=== PATIENT | female | born 1995 | race Caucasian/White ===

== ENCOUNTER 2021-08-28 13:22 | Emergency (ER) | payer OTHER, SELFPAY ==
[2021-08-28 13:37] VITALS: BP 110/75; PULSE 77; RESP 18; TEMP 37.4; O2SAT 96
[2021-08-28 13:40] VITALS: BP 110/75; PULSE 77; RESP 18; TEMP 37.4; O2SAT 96
--- NOTE | 2021-08-28 13:57 | ED.GENADULT ---
HPI - General Adult General Chief complaint: Urogenital-Female Stated complaint: Frequent urination, and back pain Source: patient Mode of arrival: ambulatory Limitations: no limitations History of Present Illness HPI narrative: Patient presents for evaluation of urinary symptoms. She reports some suprapubic discomfort for the last 3 days. This morning she woke from sleep with some pain in her left flank. Pain waxed and waned for approximately 3 hours and has now dissipated. She reports pain in the suprapubic region and previously experienced pain in the left flank as a cramping . She reports urinary frequency, hesitancy, incomplete emptying, dysuria. She denies any vaginal bleeding or discharge. Last menstrual period last . No fever, chills, vomiting however she had some nausea. She has had UTI's in past and this feels similar. She has also had kidney stones and has had a ureteral stent placed in past. Related Data Allergies Allergy/AdvReac Type Severity Reaction Status Date / Time latex Allergy Mild rash Verified 05/18/21 10:39 apple Allergy Swelling Verified 08/28/21 13:40 of Lip/Tongue/Throat banana Allergy Swelling Verified 08/28/21 13:40 of Lip/Tongue/Throat kiwi Allergy Swelling Verified 08/28/21 13:40 of Lip/Tongue/Throat Mushroom Allergy Severe swelling Uncoded 05/18/21 10:39 Review of Systems Review of Systems: CONSTITUTIONAL: Denies fever, chills, or sweats. EYES: Denies visual changes, redness, or discharge. ENT: Denies rhinorrhea, congestion, sore throat, or otalgia. CARDIOVASCULAR: Denies chest pain, palpitations, or edema. RESPIRATORY: Denies cough or dyspnea. GASTROINTESTINAL: Reports suprapubic pain and nausea. Denies vomiting GENITOURINARY: Reports urinary frequency, urgency, hesitancy, dysuria and incomplete emptying SKIN: Denies rash or itching. MUSCULOSKELETAL:Reports left flank earlier pain, now resolved. Denies joint pain, or myalgia. NEUROLOGIC: Denies headache, numbness, dizziness, or weakness. PSYCHIATRIC: Denies anxiety or depression. Course Course Emergency Course: This is a 25-year-old female who present with complaints of urinary symptoms. She has a history of urinary tract infection and kidney stones. Her urine is consistent with either of these as possibilities. I believe she is actively passing stone. I did offer to send her to ER for further evaluation but reviewed that it may not be necessary as I suspect it has already descended into bladder. We will treat her with abx for UTI. She will go to ER for further evaluation and treatment if her symptoms return/worsen. Otherwise she will follow up outpatient. Pt in agreement with plan of care. Level of Care: Express Care Visit Vital Signs Vital signs: Vital Signs Temperature 37.4 C 08/28/21 13:37 Pulse Rate 77 08/28/21 13:37 Respiratory Rate 18 08/28/21 13:37 Blood Pressure 110/75 08/28/21 13:37 Pulse Oximetry 96 08/28/21 13:37 Oxygen Delivery Room Air 08/28/21 13:37 Temperature 37.4 C 08/28/21 13:40 Pulse Rate 77 08/28/21 13:40 Respiratory Rate 18 08/28/21 13:40 Blood Pressure 110/75 08/28/21 13:40 Pulse Oximetry 96 08/28/21 13:40 Oxygen Delivery Room Air 08/28/21 13:40 Medical Decision Making Vital Signs Vital Signs: Vital Signs Temperature 37.4 C 08/28/21 13:37 Pulse Rate 77 08/28/21 13:37 Respiratory Rate 18 08/28/21 13:37 Blood Pressure 110/75 08/28/21 13:37 Pulse Oximetry 96 08/28/21 13:37 Oxygen Delivery Room Air 08/28/21 13:37 Temperature 37.4 C 08/28/21 13:40 Pulse Rate 77 08/28/21 13:40 Respiratory Rate 18 08/28/21 13:40 Blood Pressure 110/75 08/28/21 13:40 Pulse Oximetry 96 08/28/21 13:40 Oxygen Delivery Room Air 08/28/21 13:40 Lab Data Labs: Urine Glucose Negative Reference Range: Negative Urine Bilirubin
== END 2021-08-28 14:00 | disposition home or self-care (01) ==
PROVIDERS: Emergency Provider Nurse Practitioner
DX: N23 Unspecified renal colic (principal); N39.0 Urinary tract infection, site not specified
CPT/HCPCS: 81003; 87086; 87088; 99213; G0463

== ENCOUNTER 2022-08-01 12:08 | Emergency (ER) | payer OTHER, SELFPAY ==
[2022-08-01 12:14] VITALS: BP 130/80; PULSE 87; RESP 20; TEMP 37.2; O2SAT 100
--- NOTE | 2022-08-01 12:23 | ED.LOWEXIN ---
HPI - Extremity Injury (Lower) General Chief Complaint: Extremity Injury, Lower Stated Complaint: Right Leg Pain History of Present Illness HPI Narrative: PATIENT PRESENTS WITH A MUSCLE STRAIN TO RIGHT UPPER THIGH. NO INJURY NO SWELLING NO DEFORMITY. PATIENT THINKS SHE PULLED A MUSCLE 4 DAYS AGO WHILE CHASING AFTER HER 6 YEAR OLD. NO CALF PAIN. Related Data Allergies Allergy/AdvReac Type Severity Reaction Status Date / Time latex Allergy Mild rash Verified 05/18/21 10:39 amoxicillin Allergy Hives Verified 08/01/22 12:20 apple Allergy Swelling Verified 08/28/21 13:40 of Lip/Tongue/Throat banana Allergy Swelling Verified 08/28/21 13:40 of Lip/Tongue/Throat kiwi Allergy Swelling Verified 08/28/21 13:40 of Lip/Tongue/Throat Mushroom Allergy Severe swelling Uncoded 05/18/21 10:39 Review of Systems Review of Systems: CONSTITUTIONAL: DENIES FEVER, CHILLS, OR SWEATS. EYES: DENIES VISUAL CHANGES, REDNESS, OR DISCHARGE. ENT: DENIES RHINORRHEA, CONGESTION, SORE THROAT, OR OTALGIA. CARDIOVASCULAR: DENIES CHEST PAIN, PALPITATIONS, OR EDEMA. RESPIRATORY: DENIES COUGH OR DYSPNEA. GASTROINTESTINAL: DENIES ABDOMINAL PAIN, NAUSEA, VOMITING, OR DIARRHEA. GENITOURINARY: DENIES DYSURIA OR HEMATURIA. SKIN: DENIES RASH OR ITCHING. MUSCULOSKELETAL: DENIES BACK PAIN, JOINT PAIN, OR MYALGIA. NEUROLOGIC: DENIES HEADACHE, NUMBNESS, OR WEAKNESS. PSYCHIATRIC: DENIES ANXIETY OR DEPRESSION. PMFSH Comments AT TIME OF SIGNATURE, AGREE WITH NURSING PAST MEDICAL, SURGICAL, SOCIAL AND FAMILY HISTORY. THERE IS NO RELEVANT FAMILY HISTORY PERTINENT TO THE PRESENTING COMPLAINT Exam Narrative: GENERAL: WELL-APPEARING, WELL-NOURISHED, AND IN NO ACUTE DISTRESS. HEAD: NORMOCEPHALIC, ATRAUMATIC. EYES: PERRLA AND EOMI. ENT: NARES CLEAR, NO RHINORRHEA OR EPISTAXIS. MUCOUS MEMBRANES MOIST. NECK: SUPPLE. CHEST: CLEAR TO AUSCULTATION. NO RESPIRATORY DISTRESS. HEART: REGULAR RATE AND RHYTHM. NO MURMUR HEARD. NORMAL PERIPHERAL PULSES. ABDOMEN: SOFT, NONTENDER, NONDISTENDED, NORMAL ACTIVE BOWEL SOUNDS. EXTREMITIES: NORMAL RANGE OF MOTION. NO EDEMA. Lower extremity: RIGHT HIP EXAM - SKIN INTACT. NO BRUISING, REDNESS OR SWELLING. NO INGUINAL MASSES OR LYMPHADENOPATHY. GENERALIZED FEMUR AND HIP TENDERNESS. PATIENT HOLDING HIP IN EXTERNAL ROTATION WITH SLIGHT FLEXION OF KNEE. NO BUTTOCK OR SI JOINT TENDERNESS. ROM LIMITED DUE TO PAIN. NORMAL FEMORAL PULSES. BACK EXAM - NO VERTEBRAL POINT SPECIFIC TENDERNESS OR STEP OFFS. NORMAL ROM OF BACK. NORMAL FLEXION AND EXTENSION OF BACK. NO CVA TENDERNESS. LEG EXAM - NO CALF OR ANKLE SWELLING, DISCOLORATION. NORMAL FOOT SENSATION AND CAP REFILL. NORMAL DP PULSE. . SKIN: WARM, DRY, NO RASH. NEURO: NO FOCAL DEFICITS. ALERT AND ORIENTED X3. MARIA T COMA SCALE EYE OPENING: SPONTANEOUS 4 MARIA T COMA SCALE MOTOR: OBEYS COMMANDS 6 MARIA T COMA SCALE VERBAL: ORIENTED 5 MARIA T COMA SCALE TOTAL 15 Course Course Level of Care: Express Care Visit Vital Signs Vital signs: Vital Signs Temperature 37.2 C 08/01/22 12:14 Pulse Rate 87 08/01/22 12:14 Respiratory Rate 20 08/01/22 12:14 Blood Pressure 130/80 08/01/22 12:14 Pulse Oximetry 100 08/01/22 12:14 Oxygen Delivery Room Air 08/01/22 12:14 Temperature 37.2 C 08/01/22 12:14 Pulse Rate 87 08/01/22 12:14 Respiratory Rate 20 08/01/22 12:14 Blood Pressure 130/80 08/01/22 12:14 Pulse Oximetry 100 08/01/22 12:14 Oxygen Delivery Room Air 08/01/22 12:14 DISCUSSED PATIENT STRETCHING EXERCISES AND NEED TO FOLLOW UP WITH PCP IN 1-2 DAYS FOR REEVALUATION OF MUSCLE STRAIN MDM - Extremity Injury (Lower) Differential Diagnosis Differential diagnosis: Likely ankle sprain and strain, acute internal derangement of knee and other (MUSCLE STRAIN) Discharge Plan Discharge Clinical Impression: Muscle strain, Muscle strain of gluteal region Patient Disposition: Home, Self-Care Condition: Stable Instru
== END 2022-08-01 12:29 | disposition home or self-care (01) ==
PROVIDERS: Emergency Provider Nurse Practitioner Family
DX: S76.011A Strain of muscle, fascia and tendon of right hip, initial encounter (principal); X58.XXXA Exposure to other specified factors, initial encounter; Y93.02 Activity, running
CPT/HCPCS: 99213; G0463

== ENCOUNTER 2023-04-20 10:13 | Emergency (ER) | payer OTHER, SELFPAY ==
[2023-04-20 10:18] VITALS: BP 122/87; PULSE 80; RESP 20; TEMP 37.5; O2SAT 100
--- NOTE | 2023-04-20 10:23 | ED.DENTAL ---
HPI - Dental/Oral General Chief complaint: Dental/Oral Stated complaint: tooth abcess Source: patient, RN notes reviewed and old records reviewed Mode of arrival: ambulatory Limitations: no limitations History of Present Illness HPI Narrative: 27-year-old female presents to [facility] with complaints of left upper dental pain with gum abscess this started 1 week ago. Patient states positive test last week and symptoms improved but then returned this week. Patient has been taking [id number] medications and doing saltwater gargles. Patient for the dental appointment but can not get in until May. Related Data Allergies Allergy/AdvReac Type Severity Reaction Status Date / Time latex Allergy Mild rash Verified 05/18/21 10:39 amoxicillin Allergy Hives Verified 08/01/22 12:20 apple Allergy Swelling Verified 08/28/21 13:40 of Lip/Tongue/Throat banana Allergy Swelling Verified 08/28/21 13:40 of Lip/Tongue/Throat kiwi Allergy Swelling Verified 08/28/21 13:40 of Lip/Tongue/Throat Mushroom Allergy Severe swelling Uncoded 05/18/21 10:39 Review of Systems Constitutional: Constitutional: Reports no additional constitutional complaints, Denies body ache(s), Denies chills, Denies fatigue, Denies fever(s) and Denies headache(s) Eyes: Eyes: Reports no additional eye complaints and Denies blurry vision ENT: Reports system reviewed and no additional complaints, except as documented, Reports dental pain, Denies vertigo, Denies dizziness, Denies ear discharge, Denies otalgia, Denies facial pain, Denies headache(s), Reports mouth pain, Denies nasal congestion, Denies nasal discharge, Denies sinus pain, Denies sinus pressure and Denies sore throat Cardiovascular: Cardiovascular: Reports no additional cardiovascular complaints, Denies chest pain, Denies chest pain at rest, Denies rapid heart rate and Denies dyspnea Respiratory: Respiratory: Reports no additional respiratory complaints, Denies chest congestion, Denies cough, Denies pain on inspiration, Denies pain with cough and Denies dyspnea Gastrointestinal: Gastrointestinal: Denies abdominal pain, Denies diarrhea, Denies nausea and Denies vomiting Integumentary/Breasts: Skin/Breast: Denies rash Neurologic: Reports system reviewed and no additional complaints, except as documented, Denies vertigo, Denies dizziness and Denies headache(s) Endocrine: Endocrine: Denies fatigue PMFSH Comments At the time of my signature, I reviewed and agree with the nursing past medical, surgical, social, and family history. There is no relevant family history pertinent to the patient complaint. Exam Const: General: cooperative, healthy appearing, no acute distress and well nourished Nutritional Appearance: well nourished Orientation/consciousness: patient oriented x3 Limitations: no limitations HENMT: Head: normal to inspection and normocephalic Ears: external ears normal Face/Nose/Sinus: normal facial exam Face and sinus: normal facial exam Mouth: Yes Normal oral and palatal mucosa present, Yes oropharynx normal and Yes moist mucous membranes Teeth and gingiva: gingiva abnormal edematous, with purulent discharge and tender Throat: tonsils normal, uvula midline and no uvular edema Eyes: General: appearance normal, both eyes and all related structures Sclera: sclerae normal Pupils: Equal, round and reactive pupils present Resp: Effort & Inspection: normal respiratory effort, able to speak in complete sentences, no audible wheezes, no cough, no respiratory distress and no retractions Skin: General skin exam: normal color and no rashes or lesions noted Neuro: General: patient oriented x3 Cranial nerves: Yes Equal, round and reactive pupils present Psych: Appearance: grossly normal Mental Status: mental status grossly normal Speech and movement: Normal speech and movement present Affect: normal affect Course Course Emergency Course: Patient is aware of diagno
== END 2023-04-20 10:37 | disposition home or self-care (01) ==
PROVIDERS: Emergency Provider Registered Nurse
DX: K04.7 Periapical abscess without sinus (principal)
CPT/HCPCS: 99213; G0463

== ENCOUNTER 2024-11-20 08:19 | Emergency (ER) | payer SELFPAY ==
[2024-11-20 08:28] VITALS: BP 140/86; PULSE 85; RESP 19; TEMP 36.7; O2SAT 100
--- OUTSIDE RECORDS SUMMARY | 2024-11-20 08:33 | XMS_ITS | Clinical Summary ---
Author Organization [facility] Address [address] [place] [address] Care Team Providers Care Evidence Custodian Name Role Phone Cecile Anaya MD Primary Care Provider + [phone] Source Comments [facility] Affiliates and Associated Physician Practices is amultiple site organization consisting of ambulatory clinics and hospital sitesin [place], [place], [place] and [place]. This disclosure is being madepursuant to the Care Everywhere program and may not contain all information available regarding this patient. Last updated 17.[facility] [place] Allergies Active Allergy Reactions Criticality Noted Date Comments Latex Swelling High 06/18/2015 Mushroom Extract Complex Angioedema High 06/18/2015 Has epi pen Has epi pen Medications * Be aware that medications may not be up to date on this document. Alwaysverify current medications with the patient. 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 Social History Tobacco Use Types Packs/Day Years Used Date Smoking Tobacco: Never Comments Unknown Sex and Gender Information Value Date Recorded Sex Assigned at Not on file Legal Sex Female 1:05 PM CDT Gender Identity Not on file Sexual Orientation Not on file Last Filed Vital Signs Vital Sign Reading Time Taken Comments Blood Pressure 116/62 04/28/2016 2:35 PM CDT Pulse 69 04/28/2016 2:35 PM CDT Temperature 36.9 C (98.4 F) 04/28/2016 2:35 PM CDT Respiratory Rate - - Oxygen Saturation - - Inhaled Oxygen Concentration - - Weight 61.2 kg (135 lb) 04/28/2016 2:35 PM CDT Height 160 cm (5' 3) 04/28/2016 2:35 PM CDT Body Mass Index 23.91 04/28/2016 2:35 PM CDT Plan of Treatment Health Maintenance Due Date Last Done Comments HIV SCREENING 11/14/2011 HEPATITIS C SCREENING 11/09/2014 DTAP/TDAP/TD VACCINES (1 - Tdap) 11/14/2015 HEPATITIS B VACCINE (1 of 3 - 19+ 3-dose series) 11/14/2015 HPV VACCINE (1 - 3-dose SCDM series) 11/14/2023 DEPRESSION SCREENING 02/07/2024 COVID-19 VACCINE (1 - 2023-2 5 season) 2024 INFLUENZA VACCINE (#1) 2024 ZOSTER VACCINE (1 of 2) 2046 HIB VACCINE Aged Out No longer eligi ble based on patient's age to complete this topic MENINGOCOCCAL (Group B) VACC INE SHARED DECISION-MAKING Aged Out No longer eligibl e based on patient's age to complete this topic MENINGOCOCCAL GROUPS A/C/Y/W VACCINE Aged Out No longer eligible b ased on patient's age to complete this topic PNEUMOCOCCAL VACCINE Aged Out No long er eligible based on patient's age to complete this topic Insurance [employer] Care Teams Evidence Custodian Relationship Specialty Start Date End Date Cecile Anaya MD PCP - General Pediatrics 05/21/15
--- OUTSIDE RECORDS SUMMARY | 2024-11-20 08:33 | XMS_ITS | Clinical Summary ---
Author Organization [facility] Address [address] [place] [address] Phone Care Team Providers Care Edge Banding Off Bearer Name Role Phone Provider, None Primary Care Provider Unavailabl e Allergies Active Allergy Reactions Criticality Noted Date Comments Amoxicillin Swelling 08/23/2022 Medications methylPREDNISol one (MEDROL DOSPACK) 4 MG Tablet Therapy Pack See product package insert for dosing schedule 21 Tablet 3 Active traMADol (ULTRAM) 50 MG TabletIndicatio ns:Lumbar radiculopathy, right Take 1-2 Tablets by mouth every 6 hours as needed for Moderate or more severe pain. 20 Tablet 3 Active HYDROcodone-celestina taminophen (NORCO) 5-325 MG TabletIndicatio ns:Acute right-sided low back pain with right-sided sciatica Take 1 Tablet by mouth every 4 hours as needed for Severe pain. 20 Tablet 3 Active naloxone HCl (Narcan) 4 MG/0.1ML Liquid 1 Pandora by Nasal route as needed for Opioid Reversal (opioid overdose). administer for symptoms of overdose (severe sleepiness, breathing problems, not responsive). Call 911. May use additional dose to repeat 1 spray intranasally in 2-3 minutes if needed. 2 Each 3 Active Social History Tobacco Use Types Packs/Day Years Used Date Smoking Tobacco: Never Comments Unknown Sex and Gender Information Value Date Recorded Sex Assigned at Not on file Legal Sex Female 8:36 PM CDT Gender Identity Not on file Sexual Orientation Not on file Last Filed Vital Signs Vital Sign Reading Time Taken Comments Blood Pressure 116/72 08/23/2022 1:27 AM CDT Pulse 80 08/23/2022 1:27 AM CDT Temperature 37 C (98.6 F) 08/23/2022 12:01 AM CDT Respiratory Rate 20 08/23/2022 1:27 AM CDT Oxygen Saturation 99% 08/23/2022 1:27 AM CDT Inhaled Oxygen Concentration - - Weight 72.6 kg (160 lb) 08/23/2022 12:01 AM CDT Height 160 cm (5' 3) 08/23/2022 12:01 AM CDT Body Mass Index 28.34 08/23/2022 12:01 AM CDT Plan of Treatment Health Maintenance Due Date Last Done Comments Hepatitis C Virus (HCV) Screening 1996 TdaP Immunization 1996 Human Papillomavirus (HPV) Immunization (1 - 3-dose SCDM series) 11/14/2023 Influenza Immunization (#1) 2024 SARS-COV-2 Immunization ( - 2023- season) 2024 Respiratory Syncytial Virus (RSV) Immunization (Adult) (1 - 1-dose 75+ series) 11/14/2071 Hepatitis B Immunization Completed 998, 01/01/1997, 1996 DTaP/Tdap/Td Immunization Discontinued 2002, 06/03/1997, 03/05/1997, Additional history exists Meningococcal Immunization (ACWY) Completed 11/05/2014 Pneumococcal Immunization Combined Aged Out No longer eligible based on patient's age to complete this topic Rotavirus Immunization Aged Out No lo nger eligible based on patient's age to complete this topic Insurance Care Teams Edge Banding Off Bearer Relationship Specialty Start Date End Date Provider, None [place] PCP - General 08/03/22
--- OUTSIDE RECORDS SUMMARY | 2024-11-20 08:33 | XMS_ITS | Clinical Summary ---
Author Organization [facility] Address [address] [place] [address] Care Team Providers Care Mine Expert Name Role Phone Katie Fung MD Primary Care Provider [phone] Allergies Active Allergy Reactions Criticality Noted Date Comments Latex Mushroom Social History Tobacco Use Types Packs/Day Years Used Date Smoking Tobacco: Never Tobacco Cessation:Counseling Given: Not Answered Alcohol Use Standard Drinks/Week Comments Not Currently 0 (1 standard drink = 0.6 oz pur e alcohol) Personal Safety Answer Date Recorded Getting School Help Needed Not on file 03/28 Comments Unknown Sex and Gender Information Value Date Recorded Sex Assigned at Not on file Legal Sex Female 8:01 AM PAINT ROLLER COVER MACHINE SETTER Gender Identity Not on file Sexual Orientation Not on file Obstetrics History Para Term AB IAB SAB Ectopic Multiple Livin g Live Births 1 Date Outcome GA Total Labor Labor/2nd/3rd Weight Sex Type Anes PTL Lucy A1 A5 Name Clin Last Filed Vital Signs Vital Sign Reading Time Taken Comments Blood Pressure 127/88 02/14/2022 11:25 PM PAINT ROLLER COVER MACHINE SETTER Pulse 92 02/14/2022 11:25 PM PAINT ROLLER COVER MACHINE SETTER Temperature 37.5 C (99.5 F) 02/14/2022 11:25 PM PAINT ROLLER COVER MACHINE SETTER Respiratory Rate 18 02/14/2022 11:25 PM PAINT ROLLER COVER MACHINE SETTER Oxygen Saturation 100% 02/14/2022 11:25 PM PAINT ROLLER COVER MACHINE SETTER Inhaled Oxygen Concentration - - Weight 65.8 kg (145 lb) 02/14/2022 5:11 PM PAINT ROLLER COVER MACHINE SETTER Height 162.6 cm (5' 4) 02/14/2022 5:11 PM PAINT ROLLER COVER MACHINE SETTER Body Mass Index 24.89 02/14/2022 5:11 PM PAINT ROLLER COVER MACHINE SETTER Plan of Treatment Health Maintenance Due Date Last Done Comments Cervical Cancer Screening 1996 Depression Screening 1996 Hepatitis C Screening 1996 DTaP/Tdap/Td Vaccine (1 - Tdap) 11/14/2007 Varicella Vaccines (1 of 2 - 13+ 2-dose series) 2009 Hepatitis B Screening 2014 Regular Well Visit/Exam 18-64 2014 HPV Vaccines (1 - 3-dose SCD M series) 11/14/2023 Influenza Vaccine (#1) 2024 Pneumococcal vaccine <65 Aged Out No longer eligible based on patient's age to complete this topic Insurance [facility] Care Teams Mine Expert Relationship Specialty Start Date End Date Katie Fung MD PCP - General Family Medicine 02/14/22
[2024-11-20 08:37] LABS: BEDSIDEPREGUCG Negative (Negative)
[2024-11-20] MEDS: HYDROcodone/acetaminophen (*CRX) 5-325 MG TABLET 1 TAB PO (09:58)
--- NOTE | 2024-11-20 10:00 | ED_ITS ---
HPI - Dental/Oral General Chief complaint: Dental/Oral Stated complaint: DENTAL ISSUES Time Seen by Provider: 11/20/24 09:16 Source: patient and RN notes reviewed Mode of arrival: ambulatory Limitations: no limitations History of Present Illness HPI Narrative: 29-year-old female presents Express Care complaining of dental pain since this morning. Patient reports head pain to left upper mouth. Patient denies any difficulty swallowing, breathing, fevers come by [place] chills, nausea vomiting, or any other symptoms. Patient reports a history of dental problems, she says she has not yet seen a dentist for it. Patient took ibuprofen this morning with minimal relief. Related Data Allergies Allergy/AdvReac Type Severity Reaction Status Date / Time latex Allergy Mild rash Verified 11/20/24 08:27 amoxicillin Allergy Hives Verified 11/20/24 08:27 apple Allergy Swelling Verified 11/20/24 08:27 of Lip/Tongue/Throat banana Allergy Swelling Verified 11/20/24 08:27 of Lip/Tongue/Throat kiwi Allergy Swelling Verified 11/20/24 08:27 of Lip/Tongue/Throat Mushroom Allergy Severe swelling Uncoded 05/18/21 10:39 Review of Systems Review of Systems: CONSTITUTIONAL: Denies fever, chills, or sweats. EYES: Denies visual changes, redness, or discharge. ENT: Denies rhinorrhea, congestion, sore throat, dysphagia, difficulty clearing secretions, or otalgia. MOUTH: Positive for dental pain. CARDIOVASCULAR: Denies chest pain, palpitations, or edema. RESPIRATORY: Denies cough or dyspnea. GASTROINTESTINAL: Denies abdominal pain, nausea, vomiting, or diarrhea. GENITOURINARY: Denies dysuria or hematuria. SKIN: Denies rash or itching. MUSCULOSKELETAL: Denies back pain, joint pain, or myalgia. NEUROLOGIC: Denies headache, numbness, or weakness. PSYCHIATRIC: Denies anxiety or depression. All other systems reviewed are negative, except as documented in HPI. PMFSH Comments At the time of my signature, I reviewed and agree with the nursing past medical, surgical, social, and family history. There is no relevant family history pertinent to the patient complaint. Exam Narrative: GENERAL: This is a well-nourished, well-developed adult, in no apparent distress. They are non ill-appearing, nontoxic appearing. HEAD: normocephalic, atraumatic. EYES: Sclera clear/white. Conjunctiva normal. Vision is grossly intact. Extraocular movements intact EARS: External ears normal, Hearing grossly intact. NOSE: External nose normal THROAT: Mucous membranes moist, posterior pharynx clear, without erythema or swelling. Uvula midline. OROPHARYNX: Abscess present above left upper lateral incisor. Fracture to the 1st bicuspid tooth to left upper mouth. Gingivitis present. Tongue midline. No pain or swelling of the tongue. Dental caries present. No trismus. NECK: Neck supple, non-tender without lymphadenopathy, masses or thyromegaly. CARDIOVASCULAR: Regular rate and rhythm RESPIRATORY: Respiratory rate normal, respiratory effort nonlabored, no respiratory distress SKIN: warm, Dry, intact with no suspicious lesions or rash, good texture and turgor. NEURO: awake, alert, and oriented to person, place and time. There were no obvious focal neurologic abnormalities. EXTREMITIES: No joint tenderness, effusion, or edema noted. Course Course Emergency Course: Portions of this record may have been created with voice recognition software Vital Signs Vital signs: Vital Signs Temperature 98.0 F 11/20/24 08:28 Pulse Rate 85 11/20/24 08:28 Respiratory Rate 19 11/20/24 08:28 Blood Pressure 140/86 11/20/24 08:28 Pulse Oximetry 100 11/20/24 08:28 Oxygen Delivery Room Air 11/20/24 08:28 Temperature 98.0 F 11/20/24 08:28 Pulse Rate 85 11/20/24 08:28 Respiratory Rate 19 11/20/24 08:28 Blood Pressure 140/86 11/20/24 08:28 Pulse Oximetry 100 11/20/24 08:28 Oxygen Delivery Room Air 11/20/24 08:28 Reviewed MDM - Dental/Oral MDM Narrative Medical decision making narrative: Patient has dental abscess. Will treat with clindamycin. Patient given a dose of [facility] for pain. Will send a prescription of ibuprofen. Discussed physical exam findings. Advised supportive measures and signs/symptoms to go to the ER. Pt is appropriate for outpt treatment and f/u. Differential Diagnosis Differential diagnosis: Likely gingival abscess, dental caries, toothache, dental abscess and fracture of tooth Lab Data Labs: Lab Results 11/20/24 Range/Units 08:35 POC Urine HCG, Qual Negative (Negative) Critical Care Time Critical Care Time Critical Care Time: No Discharge Plan Discharge Clinical Impression: Dental abscess Patient Disposition: Home Condition: Stable Instructions: Antibiotic Form, Dental Abscess (ED) Additional Instructions: Take the antibiotics as directed. Take ibuprofen as directed. You may alternate with Tylenol. Follow instructions on the bottle. [place] your teeth and floss at least 2 times a day. You may use mouthwash after each brushing as well. Follow-up with dentist next week. He developed worsening swelling, fevers, difficulty swallowing or breathing, difficulty opening her jaw, swelling under the tongue, or any other concerns please go to the ER immediately. Patient Language: Micronesian Prescriptions: New clindamycin HCl [Cleocin HCl] 150 mg capsule 450 mg PO TID 7 Days Qty: 63 0RF ibuprofen 800 mg tablet 800 mg PO Q6H PRN (Reason: pain) Qty: 30 0RF No Action clindamycin HCl 300 mg capsule 300 mg PO Q6H 10 Days Qty: 40 0RF Follow-up/Referrals: PHYSICIAN,[facility] [Primary Care Provider, Internal Medicine] Stand Alone Forms: Work/School Release IP Time of Disposition: 09:57
[2024-11-20 10:02] VITALS: BP 132/90; PULSE 90; RESP 16; O2SAT 99
--- OUTSIDE RECORDS SUMMARY | 2024-11-20 11:04 | XMS_ITS | Clinical Summary ---
Author Organization [facility] Address [address] [place] [address] Phone Care Team Providers Care Timber Inspector Name Role Phone Provider, None Primary Care [...] naloxone HCl (Narcan) 4 MG/0.1ML Liquid 1 [place] by Nasal route as needed for Opioid [...] to complete this topic Insurance Care Teams Timber Inspector Relationship Specialty Start Date End Date Provider, None [place] PCP - General 08/03/22
--- OUTSIDE RECORDS SUMMARY | 2024-11-20 11:04 | XMS_ITS | Clinical Summary ---
Author Organization [facility] Address [address] [place] [address] Care Team Providers Care Program Facilitator Name Role Phone Cecile Anaya MD Primary Care Provider + [phone] Source Comments [facility],non-[facility] Affiliates and Associated Physician Practices is amultiple site organization consisting of ambulatory clinics and hospital sitesin [place], [place], [place] and [place]. This disclosure is being madepursuant to the Care Everywhere program and may not contain all information available regarding this patient. Last updated 17.[facility] [employer] Allergies Active Allergy Reactions Criticality Noted Date Comments Latex Swelling High 06/18/2015 Mushroom Extract Complex Angioedema High 06/18/2015 Has epi pen Has epi pen Medications * Be aware that medications may not be up to date on this document. Alwaysverify current medications with the patient. neomycin-polymy heavenly-hc (CORTISPORIN) [id number] otic solution Instill 4 Drops into left [...] complete this topic Insurance [employer] Care Teams Program Facilitator Relationship Specialty Start Date End Date Cecile Anaya MD PCP - General Pediatrics 05/21/15
--- OUTSIDE RECORDS SUMMARY | 2024-11-20 11:04 | XMS_ITS | Clinical Summary ---
Author Organization [facility] Address [address] [place] [address] Care Team Providers Care Airframe And Powerplant Technician Name Role Phone Katie Fung MD Primary Care Provider [phone] Allergies Active Allergy Reactions Criticality Noted Date [...] on file Legal Sex Female 8:01 AM SENIOR DIRECTOR Gender Identity Not on file Sexual Orientation Not on file Obstetrics History Para Term AB IAB SAB Ectopic Multiple Livin g Live Births 1 Date Outcome GA Total Labor Labor/2nd/3rd Weight Sex Type Anes PTL Lucy A1 A5 Name Clin Last Filed Vital Signs Vital Sign Reading Time Taken Comments Blood Pressure 127/88 02/14/2022 11:25 PM SENIOR DIRECTOR Pulse 92 02/14/2022 11:25 PM SENIOR DIRECTOR Temperature 37.5 C (99.5 F) 02/14/2022 11:25 PM SENIOR DIRECTOR Respiratory Rate 18 02/14/2022 11:25 PM SENIOR DIRECTOR Oxygen Saturation 100% 02/14/2022 11:25 PM SENIOR DIRECTOR Inhaled Oxygen Concentration - - Weight 65.8 kg (145 lb) 02/14/2022 5:11 PM SENIOR DIRECTOR Height 162.6 cm (5' 4) 02/14/2022 5:11 PM SENIOR DIRECTOR Body Mass Index 24.89 02/14/2022 5:11 PM SENIOR DIRECTOR Plan of Treatment Health Maintenance Due Date [...] patient's age to complete this topic Insurance [facility] Care Teams Airframe And Powerplant Technician Relationship Specialty Start Date End Date Katie Fung MD PCP - General Family Medicine 02/14/22
== END 2024-11-20 10:16 | disposition home or self-care (01) ==
PROVIDERS: Student in an Organized Health Care Education/Training Program
DX: K04.7 Periapical abscess without sinus (principal)
CPT/HCPCS: 81025; 99283; A9270